=== PATIENT | female | born 1995 | race Caucasian/White ===

== ENCOUNTER 2019-05-15 19:29 | Emergency (ER) | payer MEDICAID ==
[~2019-05-15] VITALS: Ht 160 cm; Wt 52.2 kg
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
[2019-05-15] MEDS ORDERED: ACETAMINOPHEN ES 500 MG TABLET PO ONE (20:00)
[2019-05-15 20:03] LABS: APPEARANCE,URINE Clear (CLEAR); BILIRUBIN,URINE Negative (NEGATIVE); BLOOD, URINE Negative Ery/uL (NEGATIVE); COLOR,URINE Yellow (YELLOW); KETONES,URINE Negative (NEGATIVE); LEUKOCYTE ESTERASE ,URINE Negative (NEGATIVE); NITRITE, URINE Negative (NEGATIVE); PH,URINE 6.5 (5.0-8.0); PROTEIN,URINE Negative (NEGATIVE); UGLUCOSE Negative (NEGATIVE); UROBILINOGEN,URINE 0.2 EU/dL (0.2)
[2019-05-15] MEDS ORDERED: ACETAMINOPHEN ES 500 MG TABLET ONE (20:26)
--- NOTE | 2019-05-15 20:37 | NUR ---
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
--- NOTE | 2019-05-15 21:15 | NUR ---
PA ZEPYUR AT BEDSIDE FOR PELVIC EXAM
[2019-05-15] MEDS ORDERED: CEFTRIAXONE 1 G VIAL IM ONE (22:30)
--- NOTE | 2019-05-15 22:31 | NUR ---
Patient discharged to home in stable condition. Written and verbal after care instructions given. Patient verbalizes understanding of instruction.
[2019-05-15] MEDS ORDERED: CEFTRIAXONE 500 MG VIAL ONE (22:35)
[2019-05-15] MEDS ORDERED: LIDOCAINE /MPF 1% VIAL 5 ML VIAL ONE (22:35)
--- NOTE | 2019-05-15 22:35 | NUR ---
PT LEFT BEFORE GETTING ANTIBIOTIC INJECTION. PT WAS CALLED AND STATED THEY WOULD COME BACK.
[2019-05-16 02:00] VITALS: BP 169/104
== END 2019-05-16 02:00 | disposition home or self-care (01) ==
LOC: ER 19:35
DX: R10.2 Pelvic and perineal pain (principal)
CPT/HCPCS: 76856-TC; 81000-TC; 84703-TC; J0696; J3490

== ENCOUNTER 2024-05-12 11:34 | Emergency (ER) | payer MEDICAID ==
[~2024-05-12] VITALS: Ht 165.1 cm; Wt 49.9 kg
[2024-05-12 11:44] VITALS: BP 125/94; TEMP 98.8; O2SAT 99
[2024-05-12] MEDS ORDERED: ACETAMINOPHEN ES 500 MG TABLET ONE (12:38)
[2024-05-12] MEDS ORDERED: CYCLOBENZAPRINE 10 MG TABLET ONE (12:38)
[2024-05-12] MEDS ORDERED: IBUPROFEN 400 MG TABLET ONE (12:39)
[2024-05-12] MEDS: IBUPROFEN 400 MG TABLET PO ONE (12:40)
[2024-05-12] MEDS: CYCLOBENZAPRINE 10 MG TABLET PO ONE (12:40)
[2024-05-12] MEDS: ACETAMINOPHEN ES 500 MG TABLET PO ONE (12:40)
[2024-05-12] MEDS ORDERED: CYCL10TA9 PO (13:40)
[2024-05-12] MEDS ORDERED: KETO10TA2 PO (13:40)
== END 2024-05-12 14:06 | disposition home or self-care (01) ==
LOC: ER 11:41
DX: M25.511 Pain in right shoulder (principal); Z98.890 Other specified postprocedural states; V49.88XA Car occupant (driver) (passenger) injured in other specified transport accidents, initial encounter; Y93.89 Activity, other specified; Y92.410 Unspecified street and highway as the place of occurrence of the external cause; Y99.8 Other external cause status
CPT/HCPCS: 73030-TC